=== PATIENT | female | born 1975 | race Caucasian/White ===

== ENCOUNTER 2024-05-22 17:33 | Inpatient (IN) | payer OTHER ==
[~2024-05-22] VITALS: Ht 162.6 cm; Wt 64.4 kg
[2024-05-22] MEDS ORDERED: DILTIAZEM HCL IV 125 MG in IV NS 0.9% 100 ML IV PRN ×2 (18:00→19:00)
[2024-05-22] MEDS ORDERED: Magnesium 1GM/D5W 100ML PREMIX 100 ML IV SCH (18:00)
[2024-05-22] MEDS ORDERED: DILTIAZEM HCL 50 MG IV IV ONE (18:00)
[2024-05-22] MEDS: IV NS 0.9% 500 ML BAG IV ONE (18:03)
[2024-05-22] MEDS ORDERED: DILTIAZEM HCL 25 MG IV ONE (18:06)
[2024-05-22] MEDS ORDERED: Magnesium 1GM/D5W 100ML PREMIX 100 ML IV ONE (18:09)
[2024-05-22 18:13] LABS: BASOPHILS % (AUTO) 0.4 % (0.0-2.0); EOSINOPHILS % (AUTO) 0.2 % (0.0-6.0); HEMATOCRIT 34 % (33-45); HEMOGLOBIN 11.7 g/dL (11.5-14.8); LYMPHOCYTES # (AUTO) 1.1 K/uL (0.8-4.8); LYMPHOCYTES % (AUTO) 17.5 % (20.0-44.0); MEAN CORPUSCULAR HEMOGLOBIN 31 PG (26.0-33.0); MEAN CORPUSCULAR HGB CONC 35 g/dl (31.0-36.0); MEAN CORPUSCULAR VOLUME 88 fL (82-100); MONOCYTES # (AUTO) 0.3 K/uL (0.1-1.30); MONOCYTES % (AUTO) 4.6 % (2.0-12.0); NEUTROPHILS # (AUTO) 4.7 K/uL (1.8-8.9); NEUTROPHILS % (AUTO) 77.3 % (43.0-81.0); PLATELET COUNT (AUTO) 174 K/uL (150-450); RED BLOOD CELL COUNT(AUTO) 3.82 MIL/uL (4.0-5.2); RED CELL DISTRIBUTION WIDTH 16.8 % (11.5-15.0); WHITE BLOOD COUNT (AUTO) 6.1 K/uL (4.3-11.0)
[2024-05-22 18:25] LABS: CALCIUM, SERUM 9.3 mg/dL (8.5-10.1); CARBON DIOXIDE 26 mmol/L (21-32); CHLORIDE 108 mmol/L (98-107); GLUCOSE 130 mg/dL (74-106); POTASSIUM 3.5 mmol/L (3.5-5.1); SODIUM SERUM 141 mmol/L (136-145); UREA NITROGEN, BLOOD 15 mg/dL (7-18)
[2024-05-22 18:38] LABS: NT-PRO BNP 1051 pg/mL (0-125)
[2024-05-22] MEDS ORDERED: METO50TA16 PO (18:42)
[2024-05-22] MEDS ORDERED: METH750T3 PO (18:42)
[2024-05-22] MEDS ORDERED: APIX5TAB PO (18:42)
[2024-05-22] MEDS ORDERED: ZOLP5TAB2 PO (18:42)
[2024-05-22] MEDS ORDERED: PRED10TA PO (18:42)
[2024-05-22] MEDS ORDERED: LEVO75TA7 PO (18:42)
[2024-05-22] MEDS ORDERED: VITAMIN D PO (18:42)
[2024-05-22] MEDS ORDERED: FLUT16SP16 BNOSTRILS (18:42)
[2024-05-22] MEDS ORDERED: ROSU20TA2 PO (18:42)
[2024-05-22] MEDS: DILTIAZEM HCL 50 MG IV IV ONE (18:58)
[2024-05-22] MEDS: Magnesium 1GM/D5W 100ML PREMIX 100 ML IV SCH (19:08)
[2024-05-22] MEDS ORDERED: AMIODARONE 150 MG/3 ML VIAL IV ONE ×2 (19:27→19:30)
[2024-05-22] MEDS: AMIODARONE 150 MG/3 ML VIAL IV ONE (19:40)
[2024-05-22] MEDS: AMIODARONE 450 MG in IV D5W 241 ML IV PRN (20:00)
[2024-05-22] MEDS ORDERED: ONDANSETRON HCL/PF 4 MG/2 ML VIAL IVP PRN (21:00)
[2024-05-22] MEDS ORDERED: AMIODARONE 450 MG in IV D5W 241 ML IV PRN (21:00)
[2024-05-22] MEDS ORDERED: Z GUARD REMEDY 4 OZ OINT TP PRN (21:00)
[2024-05-22] MEDS ORDERED: ACETAMINOPHEN 325 MG TABLET PO PRN (21:00)
[2024-05-23] MEDS: ZOLPIDEM TARTRATE 5 MG TABLET ONE (00:13)
[2024-05-23] MEDS: ZOLPIDEM TARTRATE 5 MG TABLET PO PRN (00:14)
[2024-05-23] MEDS ORDERED: PANTOPRAZOLE 40 MG TABLET.DR PO ONE (08:30)
[2024-05-23] MEDS: PANTOPRAZOLE 40 MG TABLET.DR PO SCH (08:44)
[2024-05-23 08:52] LABS: BASOPHILS % (AUTO) 0.3 % (0.0-2.0); HEMATOCRIT 33 % (33-45); HEMOGLOBIN 11.1 g/dL (11.5-14.8); LYMPHOCYTES % (AUTO) 23.9 % (20.0-44.0); MEAN CORPUSCULAR HEMOGLOBIN 30 PG (26.0-33.0); MEAN CORPUSCULAR HGB CONC 34 g/dl (31.0-36.0); MEAN CORPUSCULAR VOLUME 90 fL (82-100); MONOCYTES # (AUTO) 0.4 K/uL (0.1-1.30); MONOCYTES % (AUTO) 8.6 % (2.0-12.0); NEUTROPHILS # (AUTO) 2.9 K/uL (1.8-8.9); NEUTROPHILS % (AUTO) 67.2 % (43.0-81.0); PLATELET COUNT (AUTO) 145 K/uL (150-450); RED BLOOD CELL COUNT(AUTO) 3.68 MIL/uL (4.0-5.2); RED CELL DISTRIBUTION WIDTH 17.4 % (11.5-15.0); WHITE BLOOD COUNT (AUTO) 4.4 K/uL (4.3-11.0)
[2024-05-23 09:05] VITALS: O2SAT 96
[2024-05-23 09:37] LABS: ALBUMIN 2.2 g/dL (3.4-5.0); ALKALINE PHOSPHATASE 50 U/L (46-116); ASPARTATE AMINOTRANSFERASE 17 U/L (15-37); BILIRUBIN,DIRECT 0.2 mg/dL (0.0-0.2); BILIRUBIN,TOTAL 2.2 mg/dL (0.2-1.0); CALCIUM, SERUM 8.2 mg/dL (8.5-10.1); CARBON DIOXIDE 25 mmol/L (21-32); CHLORIDE 111 mmol/L (98-107); CREATININE 0.7 mg/dL (0.6-1.3); GLUCOSE 82 mg/dL (74-106); MAGNESIUM 2.5 mg/dL (1.8-2.4); NT-PRO BNP 2768 pg/mL (0-125); PHOSPHORUS 2.7 mg/dL (2.5-4.9); POTASSIUM 3.9 mmol/L (3.5-5.1); SODIUM SERUM 142 mmol/L (136-145); TOTAL PROTEIN, SERUM 4.6 g/dL (6.4-8.2); UREA NITROGEN, BLOOD 10 mg/dL (7-18)
[2024-05-23 09:54] LABS: ALANINE AMINOTRANSFERASE 40 U/L (12-78)
[2024-05-23] MEDS: APIXABAN 5 MG TABLET PO SCH (12:34)
[2024-05-23] MEDS: predniSONE 20 MG TABLET PO SCH (15:55)
[2024-05-23 16:00] VITALS: BP 93/48; TEMP 97.7; O2SAT 99
[2024-05-23] MEDS: DRONEDARONE HYDROCHLORIDE 400 MG TABLET PO SCH (17:33)
[2024-05-23 22:35] VITALS: BP 90/48; TEMP 97.5; O2SAT 96
[2024-05-24 07:37] LABS: BASOPHILS % (AUTO) 0.2 % (0.0-2.0); HEMATOCRIT 34 % (33-45); HEMOGLOBIN 11.7 g/dL (11.5-14.8); LYMPHOCYTES # (AUTO) 0.9 K/uL (0.8-4.8); LYMPHOCYTES % (AUTO) 16.4 % (20.0-44.0); MEAN CORPUSCULAR HEMOGLOBIN 30 PG (26.0-33.0); MEAN CORPUSCULAR HGB CONC 35 g/dl (31.0-36.0); MEAN CORPUSCULAR VOLUME 88 fL (82-100); MONOCYTES # (AUTO) 0.2 K/uL (0.1-1.30); NEUTROPHILS # (AUTO) 4.2 K/uL (1.8-8.9); NEUTROPHILS % (AUTO) 79.4 % (43.0-81.0); PLATELET COUNT (AUTO) 187 K/uL (150-450); RED BLOOD CELL COUNT(AUTO) 3.84 MIL/uL (4.0-5.2); RED CELL DISTRIBUTION WIDTH 17.5 % (11.5-15.0); WHITE BLOOD COUNT (AUTO) 5.3 K/uL (4.3-11.0)
[2024-05-24 08:00] VITALS: BP 96/67; TEMP 98.1; O2SAT 98
[2024-05-24 08:24] LABS: ALBUMIN 2.4 g/dL (3.4-5.0); BILIRUBIN,TOTAL 0.7 mg/dL (0.2-1.0); CALCIUM, SERUM 8.4 mg/dL (8.5-10.1); CREATININE 0.9 mg/dL (0.6-1.3); MAGNESIUM 2.3 mg/dL (1.8-2.4); PHOSPHORUS 3.4 mg/dL (2.5-4.9); POTASSIUM 4.4 mmol/L (3.5-5.1)
[2024-05-24 10:53] LABS: CREATININE, URINE 74.3 MG/DL (30.0-125.0); URINE TOTAL PROTEIN 1008.3 mg/dL (0-11.9)
[2024-05-24 11:24] LABS: PREGNANCY TEST URINE QUAL NEGATIVE (NEGATIVE)
[2024-05-24 12:00] VITALS: BP 94/60; TEMP 97.1; O2SAT 97
[2024-05-24 16:00] VITALS: BP 97/60; TEMP 98.4; O2SAT 98
[2024-05-24] MEDS ORDERED: DRON400T6 PO (16:12)
[2024-05-24] MEDS ORDERED: METO50TA16 PO (16:12)
[2024-05-24] MEDS: ENSURE ENLIVE CHOC 237 ML CAN PO SCH (17:11)
[2024-05-25 08:06] LABS: PTH, INTACT 17 pg/mL (15-65)
== END 2024-05-24 17:45 | disposition home or self-care (01) | DRG 308 ==
LOC: ER 17:38 → TRANSITION 22:21 → MED 05-23 09:34 → TELE 05-23 19:54
PROVIDERS: ADMIT Nurse Practitioner Family; ATTEND Nurse Practitioner Acute Care
DX: I48.0 Paroxysmal atrial fibrillation (principal); I50.33 Acute on chronic diastolic (congestive) heart failure; N06.20 Isolated proteinuria with diffuse membranous glomerulonephritis, unspecified; E24.9 Cushing's syndrome, unspecified; D68.59 Other primary thrombophilia; I11.0 Hypertensive heart disease with heart failure; E03.9 Hypothyroidism, unspecified; Z79.01 Long term (current) use of anticoagulants; E80.6 Other disorders of bilirubin metabolism; Z88.8 Allergy status to other drugs, medicaments and biological substances; Z79.899 Other long term (current) drug therapy; Z79.890 Hormone replacement therapy; E88.09 Other disorders of plasma-protein metabolism, not elsewhere classified; M89.8X9 Other specified disorders of bone, unspecified site; E83.42 Hypomagnesemia; D64.9 Anemia, unspecified; D69.6 Thrombocytopenia, unspecified
CPT/HCPCS: 36415; 71045-TC; 76770-TC; 80048-TC; 80053-TC; 80076-TC; 82550-TC; 82570-TC; 83735-TC; 83880; 83970; 84100-TC; 84155; 84165; 84300-TC; 84443-TC; 84484-TC; 84703-TC; 85025-TC; 87081-TC; 93307-TC; A4223; G0378; J0282; J2405; J3475; J3490; J7040; J7060